=== PATIENT | female | born 1955 | race Caucasian/White ===

== ENCOUNTER 2025-02-28 08:08 | Outpatient (REF) | payer MEDICARE, SELFPAY | END 2025-02-28 08:09 | disposition home or self-care (01) | LOC: HO.HKASLDS 08:08 | PROVIDERS: PCP Student in an Organized Health Care Education/Training Program; Visit Provider Student in an Organized Health Care Education/Training Program | DX: I10 Essential (primary) hypertension (principal); G62.9 Polyneuropathy, unspecified; R03.0 Elevated blood-pressure reading, without diagnosis of hypertension; E78.5 Hyperlipidemia, unspecified; R26.0 Ataxic gait; Z99.89 Dependence on other enabling machines and devices | CPT/HCPCS: 99202 ==

== ENCOUNTER 2025-02-28 08:08 | Outpatient (AMB) | payer MEDICARE, SELFPAY ==
--- OUTSIDE RECORDS SUMMARY | 2025-02-28 08:11 | XMS_ITS | Encounter Summary ---
Author Organization [facility] Address [address] [place] [phone] Phone Care Team Providers Care Area Plant Manager Name Role Phone Aldo Lopez MD Primary Care Provider [phone] Encounter Details Date Type Department Care Team (Late st Contact Info) Description 01/04/2019 Procedure Pass [facility] [address] [place] [address] Social History Tobacco Use Types Packs/Day Years Used Date Smoking Tobacco: Never Assessed Comments Unknown Sex and Gender Information Value Date Recorded Sex Assigned at Female 03/02/2020 10:47 AM EST Legal Sex Female 2:43 PM EDT Gender Identity Female 03/02/2020 10:47 AM EST Sexual Orientation Straight 03/02/2020 10 :47 AM EST documented as of this encounter Plan of Treatment Not on file documented as of this encounter Visit Diagnoses Not on filedocumented in this encounter Care Teams Area Plant Manager Relationship Specialty Start Date End Date Aldo Lopez MD [address] [place] [address] PCP - General Internal Medicine 11/13/18 documented as of this encounter Additional Source Comments The information contained in this document represents components of the legal health record. It is not the complete legal health record.[facility]
--- OUTSIDE RECORDS SUMMARY | 2025-02-28 08:11 | XMS_ITS | Clinical Summary ---
Author Organization [facility] Address [address] [place] [id number] Phone Care Team Providers Care Wound/Ostomy Clinical Nurse Specialist Name Role Phone Aldo Lopez MD Primary Care Provider [phone]- [phone] Allergies No known active allergies Medications melatonin 3 mg Tab as needed. 0 11/28/2018 Active senna-docusate (PERICOLACE) 8.6-50 mg as needed. 0 11/28/2018 Active multivitamin (MULTI-DAY) per tablet Take 1 tablet by mouth daily. Active cyanocobalamin, vitamin B-12, 100 MCG tablet Take 100 mcg by mouth daily as needed. Active docusate sodium (COLACE) 50 MG capsule Take 1 capsule (50 mg total) by mouth 2 (two) times a day. 60 capsule 5 12/21/2018 Active calcium carbonate (CALCIUM 600 ORAL) Take by mouth daily. Active aspirin-acetami nophen-caffeine (EXCEDRIN MIGRAINE) 250-250-65 mg per tablet Take 2 tablets by mouth every 8 (eight) hours as needed for pain (specific location in comments). Active cholecalciferol (VITAMIN D3) 25 MCG (1,000 unit) tablet Take 5,000 Units by mouth daily. Active magnesium oxide 250 mg (150 mg elemental) Tab Take 250 mg by mouth daily. Active Family History Medical History Relation Comments Heart attack Brother Coronary artery disease Father Heart attack Father Stroke Father Uterine cancer Mother Relation Status Comments Brother Father Mother Social History Tobacco Use Types Packs/Day Years Used Date Smoking Tobacco: Former Smokeless Tobacco: Never Education Answer Date Recorded Are you interested in more education? Not on ira e 07/01/2022 Are you concerned about learning? Not on file 07/01/2022 No 07/01/2022 No 07/01/2022 Digital Access Answer Date Recorded No 08/02/2022 No 08/02/2022 Reliable internet access at home? Not on file 08/02/2022 Device with a working camera? Not on file Comments Unknown Sex and Gender Information Value Date Recorded Sex Assigned at Female 03/02/2020 10:47 AM EST Legal Sex Female 2:43 PM EDT Gender Identity Female 03/02/2020 10:47 AM EST Sexual Orientation Straight 03/02/2020 10 :47 AM EST Last Filed Vital Signs Vital Sign Reading Time Taken Comments Blood Pressure 135/88 03/10/2020 12:56 PM EST Pulse 77 03/10/2020 12:56 PM EST Temperature 36.7 C (98.1 F) 03/10/2020 12:56 PM EST Respiratory Rate - - Oxygen Saturation 96% 03/10/2020 12:56 PM EST Inhaled Oxygen Concentration - - Weight 67.1 kg (148 lb) 11/19/2019 3:31 PM EDT P t reported Height 154.9 cm (5' 1 ) 11/19/2019 3:31 PM EDT P t reported Body Mass Index 27.96 11/19/2019 3:31 PM EDT Plan of Treatment Health Maintenance Due Date Last Done Comments Adult Td,Tdap Booster 1953 LIPID PANEL 1953 DEPRESSION SCREENING 1965 SMOKING Hx and SMOKELESS TOB ACCO SCREENING 1966 HEPATITIS C SCREENING 07/05/1971 MAMMOGRAM 1993 COLOGUARD 1998 COLONOSCOPY 1998 COLORECTAL CANCER SCREENING 1998 FIT TEST 1998 FOBT 1998 SIGMOIDOSCOPY 1998 VIRTUAL COLONOSCOPY 1998 PNEUMOCOCCAL VACCINES (50+ y ears) (1 of 1 - PCV) 07/05/2003 ZOSTER VACCINES (2 of 3) 01/24/2016 11/29/2015 OSTEOPOROSIS SCREENING INITI AL (ONE-TIME) 2018 INFLUENZA VACCINE (#1) 2024 COVID-19 VACCINE ( - 2024-2 6 season) 2024 RSV VACCINE (1 - 1-dose 75+ series) 2028 HEPATITIS A VACCINES Aged Out No long er eligible based on patient's age to complete this topic HIB VACCINES Aged Out No longer eligi ble based on patient's age to complete this topic MENINGOCOCCAL VACCINES (ACWY) Aged Out No longer eligible based on patient's age to complete this topic MENINGOCOCCAL VACCINES (B) Aged Out N o longer eligible based on patient's age to complete this topic Medical Devices Not on file Insurance MEDICARE REPLACEMENT MEDICARE REPLACEMENT [place] [id number] MEDICARE REPLACEMENT MEDICARE REPLACEMENT MEDICARE REPLACEMENT MEDICARE RE[place]AC[place] [address] [place] [address] MEDICARE REPLACEMENT [address]ICARE [place] [place] [address] MEDICARE REPLACEMENT Care Teams Wound/Ostomy Clinical Nurse Specialist Relationship Specialty Start Date End Date Aldo Lopez MD [address] [place] [id number] PCP - General Internal Medicine 11/13/18 Additional Source Comments The information contained in this document represents components of the legal health record. It is not the complete legal health record.[facility]
--- OUTSIDE RECORDS SUMMARY | 2025-02-28 08:11 | XMS_ITS | Data Portability ---
Author Organization [place] [facility], PAletaCAleta, [facility] CBO ADMIN Address [address] [place] [address] Care Team Providers Care Poultry Barn Manager Name Role Phone DAMIR ST Pot Annealer LALA ALFONSO Printed Circuit Boards Stripper Etcher BLANKA HASKINS Primary Care Provider Assessment No assessment recorded. Plan of Treatment Reminders Order Date Submit Date Provider Last Modified By Organization Details Last Modified Time Details Appointments PHYSICAL 40 2025 09:00A Jacqueline Haskins APRN Not available Not available Not available Lab lipid panel, serum 2024 025 GAR[facility] (Centralized Electronic Ordering - All Locations), Patient Can Go To The Location Of Their Choice, 05/08/2024 09:55:30 CMP, serum or plasma 2024 025 GARETH [facility] (Centralized Electronic Ordering - All Locations), Patient Can Go To The Location Of Their Choice, 05/08/2024 09:55:30 unlisted lab - TSH reflex to t4f 2024 025 GARETH [facility] (Centralized Electronic Ordering - All Locations), Patient Can Go To The Location Of Their Choice, 05/08/2024 09:55:31 vitamin D, 25-hydrox y, total, serum 2024 025 GARETH [facility] (Centralized Electronic Ordering - All Locations), Patient Can Go To The Location Of Their Choice, 05/08/2024 09:55:31 vitamin B12, serum 2024 025 AGRETH [facility] (Centralized Electronic Ordering - All Locations), Patient Can Go To The Location Of Their Choice, [id number] 05/08/2024 09:55:31 CBC w/ auto diff 2024 025 GARETH [facility] (Centralized Electronic Ordering - All Locations), Patient Can Go To The Location Of Their Choice, [id number] 05/08/2024 09:55:31 Referral None recorded. Procedures None recorded. Surgeries None recorded. Imaging electroca rdiogram 2024 025 [email or web address] [facility] [place], [address], [place], [address], 11/20/2024 11:20:28 MAMMO, screening , digital, bilateral - Screening mammogram due after 07/07/242024 025 [facility] ([facility]), [address], [address], [place], [address], 07/26/2024 12:00:48 Medication Orders atorvasta tin 10 mg tablet 2024 025 [id number], [address], [place], [id number], 05/08/2024 10:04:10 amlodipin e 5 mg tablet 2024 025 [facility] #[id number], [address], [place], [id number], 05/08/2024 10:04:11 Patient TargetsNo targets recorded. Patient Instructions Encounter Date Encounter Id Patient Instructions Last Modified By Organization Details Last Modified Time 05/08/2024 [id number] Well Visit, Ages 18 to 65: Care Instructions [email or web address] Not available 05/08/2024 09:54:06 Repeat mammogram in July Complete fasting labs at [facility] prior to next visit. You have lots of ear wax in your left ears. Use debrox (over the counter) fill the ear canal with the drops once a day for four days. Then use the bulb syringe in the kit to irrigate your ear. If you are having issues or prefer, come in and let us do irrigate your ear after using the debrox. [email or web address] Not available 05/08/2024 10:00:41 11/20/2024 [id number] Well Visit, Ages 18 to 65: Care Instructions [email or web address] Not available 11/20/2024 11:15:25 Reason for Referral None Reported. Results Created Date Observation Date Name Description Value Unit Range Abnormal Flag Note LastModifiedBy Organization Detail LastModifiedTime 07/27/19 MAMMO , scree roverto, digit al, bilat eral No observ ation record ed. [facility] ([facility]) [address] [facility] [address], [place], [address], 07/31/2024 14:27:51 07/27/19 25 07/26/2024 MAMMO , scree roverto, digit al, bilat eral No observ ation record ed. [email or web address] [facility] [address] [facility] [address], [place], [address], 07/31/2024 14:27:52 11/20/19 25 elect rocar diogr am No observ ation record ed. [email or web address] [facility] [place] [address], [place], [address], 11/20/2024 11:15:20 11/26/19 25 elect rocar diogr am No observ ation record ed. [email or web address] [facility] [place] [address], [place], [address], 11/25/2024 09:06:23 Result Notes None recorded. Problems Name Problem SNOMED Code Status Onset Date Resolution Date Notes Provider Name and Address Organization Details Recorded Time Osteopeni a 116683743 Active 2015 Osteopenia Not Available [facility] 23:52:55 Osteoporo sis 03017108 Active 2018 Osteoporos is Blanka Haskins, COMPRESSOR HOUSE OPERATOR [address] [place], [address] , [place] [facility] 5 20:37:48 Muscle weakness 45406882 Active 2018 Generalize d muscle weakness Not Available [facility] 4 23:52:56 Anxiety disorder 587230934 Active 2018 Anxiety disorder, unspecifie d Not Available [facility] 4 23:52:56 Hypertens radha disorder 91957230 Active 2022 HTN (hypertens ion) Not Available [facility] 4 23:52:56 Adenomato us polyp of colon 251589863 Active 2022 Adenomatou s polyp of colon Not Available [facility] 4 23:52:56 Mixed hyperlipi demia 665318872 Active 2023 Mixed hyperlipid emia Blanka Haskins APRN [address] [place], [address] , [place] [facility] 5 20:37:54 Essential hypertens ion 91399276 Active 2024 Blanka Haskins APRN [address] [place], [address] , [place] [facility] 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 5 20:38:10 Excessive cerumen in ear canal 953134413 Active 2024 Blanka Haskins APRN [address] [place], [address] , [place] [facility] 5 10:00:54 Problem Notes None recorded. Procedures Surgical History Date Name Laterality Status Provider Name and Address Organization Details Recorded Time Most Recent Mammogram completed Blanka Haskins APRN [address] [place], [address], [place] [facility] 07/26/2024 12:07:45 5 Date of Last Mammogram completed Blanka MorganJUAN berrios [address] [place], [address], [place] [facility] 07/26/2024 16:20:14 4 Most Recent Bone Density completed Blanka MorganMERISSA berriosN [address] [place], [address], [place] [facility] 05/07/2024 20:39:29 1 Colonoscopy completed Blanka MorganMERISSA berriosN [address] [place], [address], [place] [facility] 05/07/2024 20:51:51 1 colonoscopy and biopsy of colon completed Blanka MorganMERISSA berriosN [address] [place], [address], [place] [facility] 05/07/2024 21:05:09 9 Date of Last Pap Smear completed Blanka MorganMERISSA berriosN [address] [place], [address], [place] [facility] 05/07/2024 20:46:33 aspiration of lesion of breast completed Blanka HaskinsMERISSA berriosN [address] [place], [address], [place] - [facility] 05/07/2024 21:05:47 Imaging Results None recorded. Procedure Notes None recorded. Medical Equipment None Reported. Allergies No known drug allergies Medications Name Sig Start Date Stop Date Status Note LastModified by Organization Details LastModified Time atorvastatin 10 mg tablet TAKE 1 TABLET(1 0 MG) BY MOUTH DAILY 2024 active Not Available Not Available Not Avai lable ibuprofen 800 mg tablet TAKE 1 TABLET BY MOUTH EVERY 8 HOURS NEEDED FOR PAIN 11/20 completed Not Available Not Available Not Available alendronate 70 mg tablet Take 1 tablet (70 mg total) by mouth every 7 days. Take with water on empty stomach/ Nothing by mouth and do not lie down for next 30 minutes 08/13 completed Not Available Not Available Not Available amlodipine 5 mg tablet TAKE 1 TABLET(5 MG) BY MOUTH DAILY 2024 active Not Available Not Available Not Avai lable amoxicillin 500 mg tablet TAKE 1 TABLET BY MOUTH EVERY 6 HOURS UNTIL GONE 11/19 completed Not Available Not Available Not Available aspirin-acet aminophen-ca ffeine 250 mg-250 mg-65 mg tablet Take 2 tablets by mouth every 8 (eight) hours as needed. 11/20 completed Not Available Not Available Not Available amoxicillin 875 mg-potassium clavulanate 125 mg tablet TAKE 1 TABLET BY MOUTH TWICE DAILY FOR 7 DAYS 05/08 completed Not Available Not Available Not Available fiber active Not Available Not Availa ble Not Available Caltrate 600 plus D active Not Available Not Available Not Available Vitals Date Recorded Pain severity - 0-10 verbal numeric rating [Score] - Reported Provider Name and Address Organization Details Last Updated DateTime 05/08/2024 0 Blanka Haskins APRN [address] [place], [address], [facility] 05/08/2024 16:03:36 Date Recorded Body height Body mass index (BMI) Body weight Body temperature Oxygen saturation Heart rate Systolic And Diastolic Provider Name and Address Organization Details Last Updated DateTime 5 156.2 cm 23.8 kg/m2 33410.8 2 g 98 [degF] 99 % 66 /min 124/72 mm[Hg] KEYONNA PENN [place] [employer] 09:17:31 Date Recorded Respiratory rate Provider Name a nd Address Organization Details Last Updated DateTime 11/20/2024 17 /min Blanka Haskins APRN [address] [place], [address], [facility] 11/30/2024 15:29:20 Date Recorded Body height Body mass index (BMI) Body weight Body temperature Oxygen saturation Heart rate Systolic And Diastolic Provider Name and Address Organization Details Last Updated DateTime 5 156.2 cm 24.9 kg/m2 41670.3 8 g 97 [degF] 99 % 68 /min 128/70 mm[Hg] Sunshine Alvarez [facility] 10:27:23 Social History Question Answer Notes LastModified by Organizat ion Details LastModified Time Tobacco Smoking Status Former Smoker Not Available [facility] 02/06/2024 21:25:13 Do You Have An Advance Directive? No Information not available 05/08/2024 How Many Days Of Moderate To Strenuous Exercise, Like A Brisk Walk, Did You Do In The Last 7 Days? 7 [email or web address] Information not available 05/08/2024 How Many Times Per Week Do You Exercise? 5-7 Times Per Week [email or web address] Information not available 05/08/2024 When Did You Quit Smoking? 16+yearssin jj elisejohnny Age 47 ~2004 [email or web address] Information not available 05/07/2024 What Was The Date Of Your Most Recent Tobacco Screening? 11/20/2024 [email or web address] Information not available 11/20/2024 How Many Children Do You Have? 3 [email or web address] Information not available 05/08/2024 What Is Your Current Pack Years? 30ormorepac kyears 34 (1 PPD X34 Yr) [email or web address] Information not available 05/07/2024 What Is Your Relationship Status? 02/01/23 Lives With , X 22 Years. Feels Safe At Home. [email or web address] Information not available 05/07/2024 Are You Sexually Active? No [email or web address] Information not available 05/08/2024 At What Age Did You Start Smoking Tobacco? 13 [email or web address] Information not available 05/07/2024 How Much Tobacco Do You Smoke? No [email or web address] Information not available 05/07/2024 How Many Years Have You Smoked Tobacco? 34 [email or web address] Information not available 05/07/2024 Sex: Female Functional Status Question Answer Note LastModified by Organizat ion Details LastModified Time Do you use any illicit or recreational drugs? No Past marijuana use [email or web address] Information not available 05/08/2024 Do you feel safe in your relationship? Yes [email or web address] Information not available 05/08/2024 Do you or have you ever used any other forms of tobacco or nicotine? No [email or web address] Information not available 05/07/2024 What is your level of alcohol consumption? None [email or web address] Information not available 05/08/2024 Are you currently employed? 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 [email or web address] Information not available 05/07/2024 What is your status? Not [email or web address] Information not available 05/07/2024 Are you able to walk independently without assistance or assistive devices? YESASSIST [email or web address] Information not available 05/08/2024 What is your exercise level? Occasional [email or web address] Information not available 05/08/2024 Do you or have you ever used any nicotine-free cigarettes, vape, or chewing tobacco? No [email or web address] Information not available 05/07/2024 Mental Status None recorded. Family History Relationship Description Onset Age of this Age Resolved Age Notes LastModified by Organization Details LastModified Time Father Essential hypertension [email or web address] Not available 21:03:45 Father Cerebrovascu lar accident [email or web address] Not available 21:03:54 Father Myocardial infarction [email or web address] Not available 06/2024 21:04:03 Mother Malignant neoplasm of uterus Not available 05/07 21:04:11 Brother Myocardial infarction [email or web address] Not available 06/2024 21:04:19 Paternal Aunt Malignant neoplasm of breast [email or web address] Not available 05/07 21:04:37 Medical History Condition Response Hypertension Y Polyps Y GI Problems Y Osteoporosis Y High Cholesterol Y Gynecological History Statement/Question Response Date of Last Pap Smear 03/06/2018 Date of Last Mammogram 07/26/2024 Most Recent Mammogram 07/26/2024 Most Recent Bone Density 07/06/2023 Colonoscopy 09/14/2020 Obstetrics History GPAL:G 3 P 3 0 0 3 Type Value Full Term 3 Living 3 Total 3 Immunizations Vaccine Type Date Status Note Provider Nam e and Address Organization Details Recorded Time zoster live 6 completed Not Available [facility] 02/09/2024 00:03:10 Pneumococcal conjugate PCV 13 9 completed Not Available [facility] 02/09/2024 00:03:10 Past Encounters Encounter ID Performer Location Encounter Start Date Encounter Closed Date Diagnosis/Indication Diagnosis SNOMED-CT Code Diagnosis ICD10 Code Diagnosis IMO Codes Diagnosis Note [id number] Blanka Haskins, COMPRESSOR HOUSE OPERATOR [facility] FCEN2 [facility] (inactive ) [address] [place] [address] 05/08/2024 09:06:40 05/08/2024 10:05:57 Physical examination 0380942 Z00.00 [id number] Routine labs orderedCou nseled on ABCDEs of skin surveillan ce, self breast exam/breas tawareness , healthy diet emphasizin g fruits/veg etables, lean proteins, whole grains and avoidance of refined carbohydra erica/sugar sweetened beverages; counseled on regular physical activity to meet recommende d 150 minutes aerobic activity per week for cardioCase Commons and maintenanc e of healthy weight. Health Maintenanc eAge related cancer screening: Colon Cancer: Up to date- Colonoscop y 09/14/2020 colonoscop y, + tubular adenoma (7-10 year recall?)Ce rvical Cancer: Graduated from recommende d screening - per patient no history of abnormal screening - follows with women's health every 2 years ([facility] [employer] last exam 06/14/[address] CMN), Last pap smear 03/06/2018 Negative, HPV negativeBr east Cancer: Up to date, last mammogram 07/06/23, Stable mammograph ic findings with no evidence of malignancy , BI-RAD 2- BENIGN FINDINGS; Category B densityLun g Cancer: Not eligible - Former smoker, quit smoking >15 years ago Chronic Condition Screening: Falls: + Fall riskDepres molina: PHQ 2 negativeOs teoporosis : Last DEXA 07/06/2023: 1. Lumbar spine: Normal bone density (T score: -0.3). 2. Left hip: Osteoporos is (T score: -2.5).Chol esterol panel: 10/17/2023 cholestero l 172, HDL 72, triglyceri josue 127, LDL 78Diabetic screenin10/17/2023 FBS 97CAD risk: Calc 10 yr risk for first ASCVD event intermedia te, 11.1%Hepat itis C: 10/17/2023 Non-reacti veHIV: 10/17/2023 Non-reacti ve Previously reviewed and discussed advanced directives with patient at [facility] 08/02/[address] Combined form which she was encouraged to complete and return, today states she has not completed but family aware of wishes. Again counseled on benefits of documented AD, provided new copy of [place] Combined form which she was encouraged to complete and return - pt left form in exam room Osteoporosis 38416806 M8 1.0 72600780 Up to date with DEXA, not on treatment. Patient did not tolerate and d/c alendronat e due to concern of muscle pain which subsequent ly resolved with discontinu ation; at that time discussed trial of alternativ e oral bisphospho aviva or alternativ e osteoporos is treatment (e.g. injection or infusion) which patient declined and was counseled on potential alternativ e treatment with supplement ation with 5 g of specific collagen peptides (FORTIBONE ) which patient decided not to pursue. Today patient again not interested in pharmacolo gic treatment Counseled patient on fall prevention measures and ongoing weight bearing exercise and calcium/vi tmain D supplement ation to promote bone health. Repeat vitamin D level Last DEXA 07/06/2023: 1. Lumbar spine: Normal bone density (T score: -0.3). 2. 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 Not engaged with neurology since 2020 - not interested in following with neurology as pt reports symptoms unchanged, will continue to monitor. Does not take any vaccines s/p diagnosis due to GBS concerns. Body mass index 20-24 - normal 178833716 Z68.22 85551449 05/08/24 128 lb. BMI 23.88/28/2 4 128 lb, BMI 23.91 Screening mammography 24 757546 Z12.31 4559096946 Repeat mammogram due 07/05/24 - ordered for future scheduling Excessive cerumen in ear canal 605147876 H61.22 34252330 Counseled not to use q-tips counseled on use of ceruminoly tic drops; advised may return PRN for in office ear lavage. 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 Patient did not tolerate and d/c alendronat e due to concern of muscle pain which subsequent ly resolved with discontinu ation; at that time discussed trial of alternativ e oral bisphospho aviva or alternativ e osteoporos is treatment (e.g. injection or infusion) which patient declined and was counseled on potential alternativ e treatment with supplement ation with 5 g of specific collagen peptides (FORTIBONE ) which patient decided not to pursue. Today patient again not interested in pharmacolo gic treatment Counseled patient on fall prevention measures and ongoing weight bearing exercise and calcium/vi tmain D supplement ation to promote bone health. Repeat vitamin D level - pt to complete previously ordered BW - order placed to [facility] 05/2024 Last DEXA 07/06/2023: 1. Lumbar spine: Normal bone density (T score: -0.3). 2. 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 Not engaged with neurology since 2020 - not interested in following with neurology as pt reports symptoms unchanged, will continue to monitor. Does not take any vaccines s/p diagnosis due to GBS concerns. 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 Lumbar spine: Normal bone density (T score: -0.3). 2. Left hip: Osteoporos is (T score: -2.5) - consider repeat study hol esterol panel: 10/17/2023 cholestero l 172, HDL 72, triglyceri josue 127, LDL 78 - repeat BW pending pt completion Diabetic screenin10/17/2023 FBS 97CAD risk: Calc 10 yr risk for first ASCVD event intermedia te, 11.1%Hepat itis C: 10/17/2023 Non-reacti veHIV: 10/17/2023 Non-reacti ve Health Concerns Section Related Observation LastModified by Organization Detai ls LastModified Time None Recorded Concern Status LastModified by Organization Details LastModified Time None Recorded Advance Directives Directive N: Payers Insurance Date Sequence Insurance Name Policy Number Policy Oreilly Covered Member ID Oreilly Member ID Guarantor Name 12/04/2024 1 [facility] (MEDICARE REPLACEMENT/ ADVANTAGE - PPO) [id number] Shanna Infante [id number] Shanna Infante Notes Date Note Type Note Provider Name and Address Organization Details Recorded Time 5 text/html Patient presents for annual physical, last seen 11/01/23. She offers no acute concerns todayNo falls or hospitalizations since last.Up to date with eye exam in last 12 monthsUp to date w/ dental care, sees every 6 months HLD: adherent with atorvastatin, tolerating medication well without any myalgias or fatigue HTN: adherent with amlodipineRare headache responsive to OTC medicationDenies chest pain, palpitations, blurry vision, lower extremity edema, orthopnea, coughing, wheezing, SOB, and PND.Osteoporosis:Past trial of alendronate, pt self d/c due to concern of muscle pain. Not interested in further pharmacologic treatment. Last visit discussed alternative trial of collagen peptides (FORTIBONE ), since last has not tried and states she decided she is not going to start. 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 She reports chronic stable symptoms of decreased sensation & generalized paresthesias from her shoulders down. Fingers feel slippery. 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 Able to ambulate independently, uses single point cane for support b/c she wobbles Also has grab bars in her shower and transfer bench in the bathroom.Refuses all vaccines and does not wish to discuss. She does not take vaccines s/p significant adverse reaction to pneumonia vaccine in 2019. She was admitted to the hospital 1 week after vaccine w/ c/o acute onset leg muscle pain and subsequently developed developed more difficulty walking necessitating discharge to rehab facility in wheelchair. History of areflexia. She has worked w/ PT and OT and gradually improved functional status, w/ eventual plateau and has not been able to return to baseline function. She is able to complete ADLS including ambulation and independent bathing which she was not able to do in the past.-previously followed by neurologist Dr Gary Henry 03/10/2020 - at that time her symptoms were stable but her functional status remained below baseline; additional diagnostics and IVIG treatment deferred at that time, w/ recommendation to return to care in 6-12 months. Patient did not feel worthwhile to continue consultation given symptom stability.Prior testin01/08/19 MRI w/o evidence of an acute intracranial abnormality, mass, hydrocephalus or abnormal enhancement, 07/18/2019 PET negative for malignancy, and blood work including testing for autoimmune encephalopathy which was largely nimyynwdune51/1/2019 Abnormal EMG: The non-length dependent, reduced sensory responses in the upper extremities, in the absence of demyelinating changes on motor nerve conductions and fairly normal needle examination, is most supportive of a sensory ganglionopathy.Again, there is no clear electrophysiological evidence of a demyelinating polyneuropathy, as is seen in Guillain-Blackwood syndrome.The mild abnormal spontaneous activity isolated to the rightbiceps on the needle EMG study is of unclear significance, asother C5-6, upper trunk, lateral cord muscles studied were fairlynormal. Blanka Haskins, COMPRESSOR HOUSE OPERATOR [address] [place], [address], [facility] - [employer] 05/08/2024 16:04:02 5 text/html Shanna is a 69year old female who presents today for an Annual Wellness Visit.Patient reports doing well overall since her last visit.Recent healthcare maintenance includes eye exam one month ago for new glasses with no concerns noted, and dental visit approximately four months ago with routine twice-yearly visits maintained. Patient reports recent loss of brother under suspicious circumstances involving head trauma, which has caused increased stress and appetite. 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 Describes ongoing generalized paresthesias from shoulders down as like if your leg would go to sleep and then kind of pins and needles but states she is used to it after six years. Denies current pain. AWV SCREENINGFall Risk AssessmentMedicare Screening Date:Has the patient fallen in the last 6 months?: noDoes patient have difficulty with walking or balance?: yesDoes the patient use any assistive devices with ambulation?: yesFuture fall risk status: positive HEARING:normal Passed tone testing bilaterally VISUAL ACUITY:UTD with eye exam PERSONALIZED PREVENTION PLANDuring the course of the visit the patient was educated and counseled about appropriate screening and preventive services. BMI SCREENING REVIEWED:patient's BMI was normal DEPRESSION SCREENING REVIEWED:Clinical depression screening was performed and patient is negative for depression FUNCTIONAL ASSESSMENT (ADL/I-ADL) SCREENING REVIEWED:ADL ASSESSMENT:MAXWELL ADL Score : 6IADL SCREENING:Ability to Use Telephone : 1ShoppinFood Preparation: 1HousekeepinLaundry: 1Mode of Transportation: 1Responsibility for Own Medications: 1Ability to Handle Finances: 1IADL Total Score:: 8 functional ability has remained stable HOME SAFETY REVIEWED:When you walk through a room, do you have to walk around furniture? noDo you have throw rugs or runners on the floor? yesDo you have to walk over or around cords or wires? noAre there objects (papers, magazines, shoes, boxes) that are in your way when you walk up the stairs? noAre you missing a light over the stairway or is it burnt out? noDo any of your carpets have bumps or curled ends so they do not lie completely flat? noIf you have handrails, are the handrails loose or broken? noIf you use a step stool, is your step stool unsteady? noIs your tub/shower floor slippery? noDo you need support when you get in and out of the tub or up from the toilet (i.e. grab bars) yesIs the light near your bed hard to reach? noDo you have working smoke detectors? yesDo you regularly change the batteries in the smoke detectors? yesIf you have a space heater, are they far away from flammable objects? N/AIs there a phone in your bedroom? yesDo you have an exit plan if there is a fire? yesDo you always fasten your seatbelt when you are in the car? yes Discussed home modifications/improvement s to increase safeety. HEALTH RISK ASSESSMENTMedicare Screening Date:During the past four weeks, has your physical/emotional health limited your social activities? no During the past four weeks, was someone available to help you if you needed help? yes Do you exercise for at least 20 minutes 3 or more days per week?yes Are you confident that you can control/manage most of your health problems?yes 5. Have you had any issues with the following during the past 4 weeks? Please [place] all issues that you have experienced.Sexual Problems Trouble Eating Teeth/Denture Problems Tired/Fatigue - None 6. How would you rate your overall health? Please [place] the most appropriate answer.Good COGNITIVE SCREENING REVIEWED:No evidence of significant cognitive impairment PAIN ASSESSMENT REVIEWED:No reported pain. ADVANCE DIRECTIVES REVIEWED:discussed with patient- Has healthcare proxy (Daughter Ragini) and living will in place Social History:- Former smoker, quit around 2003- No alcohol or substance use- , feels safe at home- Lives independently with assistive devices (cane, shower chair, grab bars) Blanka Haskins APRN [address] [place], [address], [place] - [facility] 11/30/2024 15:41:20 OBGyn Episode No OBEpisode recorded.
--- OUTSIDE RECORDS SUMMARY | 2025-02-28 08:11 | XMS_ITS | Data Portability ---
Author Organization [facility], Main Office Address [address] [facility] [address] [place] [id number] Care Team Providers Care Fish Packer Name Role Phone MARITZA ZELAYA Primary Care Provider MERCEDEZ JIMENES Nitrocellulose Maker Assessment No assessment recorded. Plan of Treatment Reminders Order Date Submit Date Provider Last Modified By Organization Details Last Modified Time Details Appointments None recorde d. Lab None recorde d. Referral None recorde d. Procedures None recorde d. Surgeries None recorde d. Imaging MAMMO, screeni ng, digital , bilater al - screeni ng 2015 016 [email or web address] Not available 7 09:24:36 Medication Orders None recorde d. Patient TargetsNo targets recorded. Patient InstructionsNo instructions recorded. Reason for Referral None Reported. Results Created Date Observation Date Name Description Value Unit Range Abnormal Flag Note LastModifiedBy Organization Detail LastModifiedTime 03/03/20 16 02/15/2016 bone densi ty No observ ation record ed. [email or web address] Not Available 2015 12:07:40 02/09/20 18 02/08/2018 MAMMO , scree roverto, digit al, bilat eral PROCED URE: MM Digita l Mammo Screen ing INDICA TION: Screen ing. No known palpab le abnorm alitie s. Histor y of benign excisi onal biopsy on the right in 2000. COMPAR ALAN: Multip le priors dating back to 05/13/19 11 TECHNI QUE: Full-f ield digita l CC and MLO 3D tomosy nthesi s images of both breast s were acquir ed. Comput er-aid ed detect ion (CAD) was utiliz ed in the interp retati on of this study. DENSIT Y: The breast tissue contai ns scatte red areas of fibrog landul ar densit y. FINDIN GS: No suspic ious masses , suspic ious microc alcifi cation s, or areas of italo ectura l distor tion are seen in either breast to sugges t malign brissa. IMPRES JOAQUIN: No mammog raphic eviden ce of malign brissa. RECOMM ENDATI ON: Routin e mammog raphic screen ing BI-RAD S: 1 (Negat radha) Lay letter mailed to jeremie sin WSN: [id number] Dictat ed By: Shane Burleson MD Dictat ed Date/T walter: 11:30 am Review ed By: Shane Burleson MD Signed By: Shane Burleson MD Signed Date/T walter: 11:30 am Transc ribed By: CSB Transc riptio n Date/T walter: 11:24 am Birads : Jeremie sin Class: Outpat ient [email or web address] [facility] (Outpt Imaging) [address] , [place], [address], 02/08/2018 11:40:14 06/19/19 19 06/07/2018 bone densi ty No observ ation record ed. [email or web address] Not Available 2018 16:39:22 Result Notes Documentation Provider Name and Address Organization Details Recorded Time Mammo, Screening, Digital, Bilateral : PROCEDURE: MM Digital Mammo Screening INDICATION: Screening. No known palpable abnormalities. History of benign excisional biopsy on the right in 2000. COMPARISON: Multiple priors dating back to 05/12/2010 TECHNIQUE: Full-field digital CC and MLO 3D tomosynthesis images of both breasts were acquired. Computer-aided detection (CAD) was utilized in the interpretation of this study. DENSITY: The breast tissue contains scattered areas of fibroglandular density. FINDINGS: No suspicious masses, suspicious microcalcifications, or areas of architectural distortion are seen in either breast to suggest malignancy. IMPRESSION: No mammographic evidence of malignancy. RECOMMENDATION: Routine mammographic screening BI-RADS: 1 (Negative) Lay letter mailed to patient WSN: [id number] Dictated By: Marie Burleson MD Dictated Date/Time: 02/08/18 11:30 am Reviewed By: Marie Burleson MD Signed By: Marie Burleson MD Signed Date/Time: 02/08/18 11:30 am Transcribed By: CRISTAL Weight Reducing Technician Date/Time: 02/08/18 11:24 am Birads: Patient Class: Outpatient Steph ruby [facility] 02/08/2018 11:40:14 Problems Name Problem SNOMED Code Status Onset Date Resolution Date Notes Provider Name and Address Organization Details Recorded Time Overweight 821957844 Active [employer] [address], [place], [address], [facility] 6 15:52:14 Adenomatous polyp of colon 882532841 [employer] [address], [place], [address], [facility] 6 15:52:14 Osteopenia 029647232 Active [address] [employer] [address], [place], [address], [facility] 6 12:07:35 Osteoporosis 68325368 Active [address] [employer] [address], [place], [address], [facility] 9 16:38:46 Problem Notes None recorded. Procedures Surgical History Date Name Laterality Status Provider Name and Address Organization Details Recorded Time 8 Most Recent Mammogram completed Steph Teague [facility] 02/08/2018 11:40:51 8 Mammogram screening completed Steph Teague [facility] 02/08/2018 11:41:14 8 Date of Last Pap Smear completed Steph Teague [facility] 01/31/2018 08:54:35 Imaging Results None recorded. Procedure Notes None recorded. Medical Equipment None Reported. Medications Not known to be on any medication Vitals Date Recorded Body weight Body height Body mass index (BMI) Body temperature Oxygen saturation Heart rate Systolic And Diastolic Provider Name and Address Organization Details Last Updated DateTime 6 [address].9 4 g 153.67 cm 25.7 kg/m2 97.6 [degF] 98 % 58 /min 132/81 mm[Hg] Nacho Joseph [facility] 6 09:58:04 Social History Question Answer Notes LastModified by Organizat ion Details LastModified Time Tobacco Smoking Status Former Smoker Nacho ruby [facility] 10/12/2015 09:59:56 Do You Have An Advance Directive? Yes Given 10/12/2015 Information not available 10/12/2015 Is Blood Transfusion Acceptable In An Emergency? Yes Information not available 10/12/2015 What Is Your Level Of Caffeine Consumption? Occasional Coffee, Soda Information not available 10/12/2015 How Much Tobacco Do You Chew? None Information not available 10/12/2015 What Type Of Diet Are You Following? REGULAR Information not available 10/12/2015 Live Alone Or With Others? With Others Information not available 10/12/2015 Do You Take Precautions To Prevent Distracted Driving? Yes Information not available 10/12/2015 How Often Do You Need To Have Someone Help You When You Read Instructions, Pamphlets, Or Other Written Material From Your Doctor Or Pharmacy? Never Information not available 10/12/2015 How Many Children Do You Have? 3 Information not available 10/12/2015 Do You Use Protection During Sex? No Information not available 10/12/2015 Seat Belts Used Routinely Yes Information not available 10/12/2015 Are You Sexually Active? Yes Information not available 10/12/2015 Smoke Alarm In Home Yes Information not available 10/12/2015 At What Age Did You Start Smoking Tobacco? 56 Information not available 10/12/2015 Are You Passively Exposed To Smoke? Yes Information not available 10/12/2015 Do You Use Sunscreen Routinely? Yes Information not available 10/12/2015 Sex: Unknown Functional Status Question Answer Note LastModified by Organizat ion Details LastModified Time What is your level of alcohol consumption? Occasional Information not available 10/12/2015 Are you currently employed? Yes Information not available 10/12/2015 Are you able to care for yourself independently? 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 Moderate Information not available 10/12/2015 Mental Status None recorded. Family History Relationship Description Onset Age of this Age Resolved Age Notes LastModified by Organization Details LastModified Time Mother History of malignant neoplasm of ovary [email or web address] Not available 10/2015 10:11:46 Father Essential hypertension [email or web address] Not available 10/12/2015 10:11:58 Maternal Aunt Malignant neoplasm of breast [email or web address] Not available 10/2015 10:12:11 Medical History No medical history recorded. Gynecological History Statement/Question Response Frequency of Cycle (Q days) 0 Menses Monthly N Duration of Flow (days) 0 Date of Last Pap Smear 01/23/2018 Age at Menarche 12 Current Control Method None Most Recent Mammogram 02/08/2018 Age at First Child 19 LMP Unknown Desired Control Method N/A Obstetrics History GPAL:G 3 P 0 0 0 0 Immunizations Vaccine Type Date Status Note Provider Nam e and Address Organization Details Recorded Time zoster live 11/29/2015 completed Steph ruby MA [facility] 12/01/2015 10:35:01 Past Encounters Encounter ID Performer Location Encounter Start Date Encounter Closed Date Diagnosis/Indication Diagnosis SNOMED-CT Code Diagnosis ICD10 Code Diagnosis IMO Codes Diagnosis Note [id number] Maritza Zelaya PA-C Main Office [address] [facility] [place] [address] 10/12/2015 09:29:29 10/12/2015 11:11:12 Adult health examination 152197906 Z00.00 Healthy 60 year old female. Needs to gave PUBLICATIONS EDITOR exam which is scheduled next month. Find out if needs to have Td and when her last colonoscop y was. Schedule mammograph y for screening. Continue healthy diet and exercise. recommende d monthly selfbreast examinatio ns. Overweight 699366789 E66 .3 Screening mammography 24 075946 Z12.31 Health Concerns Section Related Observation LastModified by Organization Detai ls LastModified Time None Recorded Concern Status LastModified by Organization Details LastModified Time None Recorded Advance Directives Directive Y: given 10/12/2015 Payers Insurance Date Sequence Insurance Name Policy Number Policy [place] Covered Member ID [place] Member ID Guarantor Name 06/19/2018 1 [facility] [id number] Shanna Infante [id number] Shanna Infante Notes Date Note Type Note Provider Name and Address Organization Details Recorded Time 10/12/2015 text/html Generic HPI TemplateReported by [email or web address] year old female for new patient PE. Healthy overall. Did not have PE in almost 3 years . Had recent fasting labs at work and showed normal lipids and glucose. Normal waist circumference and BP. Last PUBLICATIONS EDITOR exam was also 3 years ago. Has odalis to have PapSmears done next month. No abnormal PUBLICATIONS EDITOR history.No vaccine records here , but pt. is fairly sure she had it done for [facility] w/i the past few years.Needs Zostavax vaccine. Needs mammography. Pt. does not do selfbreast exams. Has paternal aunt with h/o breast CA.UP to date with colonoscopy , but no records in chart.Non smoker. Quit 5 years ago. Denies pulmonary symptoms. ETOH occasionally.Had DEXA scan done deviously . NO h/o osteopenia/osteporosis . Tyree Gutierrez MD [address] [facility] [address], [place], [address], [facility] 10/13/2015 08:56:14 OBGyn Episode No OBEpisode recorded.
--- OUTSIDE RECORDS SUMMARY | 2025-02-28 08:11 | XMS_ITS | Data Portability ---
Author Organization [place] - [facility] Address [address] [place] [id number] Care Team Providers Care Firearms Model Maker Name Role Phone BEKAHTIO PATEL Primary Care Provider Assessment Encounter Date Assessment Date Assessment LastModified by Organization Details LastModified Time 02/24/2022 02/24/2022 Brief Overview: 66 year old female new to with a history of post vaccine GBS being seen today for general malaise, no energy, mild sore throat with deep, painful cough for last 1.5 days. Has not taken temp with temp 102.8 on arrival with no tylenol or advil taken/none in home. Only taking Delsym for cough. Slight headache; no shortness of breath; cough productive of small amount of white secretions. Denies any GI symptoms. Little appetite but drinking well I have reviewed the Other: PVIX from (hospital system/practi ce) , on this date of service . Specifically, the data/test result/record I reviewed was: labs/PCP notes . Vital Signs: 120/80; 100; repeat 98 apical with fever; 20; 98%; 102.8 Acetaminophen 1 gm given on scene Exam: non-toxic but acutely ill appearing female, febrile, in no distress; TMs clear; no nasal discharge/sin us tenderness; no pharyngeal erythema or cervical LAD; lungs clear all ward; S1S2 reg no murmur; abd negative; no edema DDx considered, with rationale: -Influenza: considered due to abrupt onset, fever; no rapids available; send PCR -COVID : considered with fever, rapid neg;will send PCR -Viral illness: send PCR to check for RSV/other viral illnesses -Pneumonia; considered with cough and fever but lungs clear [facility] Not available 02/24/2022 11:21:16 Plan of Treatment Reminders Order Date Submit Date Provider Last Modified By Organization Details Last Modified Time Details Appointments None recorded. Lab rapid SARS CoV 2 Ag, QL IA, respirato ry specimen 2021 [facility], [address] [place], [address], 11:04:13 unlisted lab - covid-19 (novel coronavir us) PCR 2021 [place] [facility] (Centralized Electronic Ordering - All Locations), Patient Can Go To The Location Of Their Choice, [id number] 13:42:03 respirato ry virus panel 2021 [place] [facility] (Centralized Electronic Ordering - All Locations), Patient Can Go To The Location Of Their Choice, [id number] 07:06:58 Referral None recorded. Procedures None recorded. Surgeries None recorded. Imaging None recorded. Medication Orders Tamiflu 75 mg capsule 2021 [facility]/Pharmacy #[id number], [address] [place], [address], 11:04:31 acetamino phen 325 mg tablet 2021 [facility] [place]/Pharmacy #[id number], [address] [place], [address], 11:04:05 Patient TargetsNo targets recorded. Patient Instructions Encounter Date Encounter Id Patient Instructions Last Modified By Organization Details Last Modified Time 02/24/2022 [id number] -You were seen today for what appears influenza illness; we sent out a viral panel to check for flu, RSV and other viral illnesses since your rapid COVID was negative -Tylenol 1000mg 3 times a day for the next 3 days -May also take ibuprofen 400-600 mg 3 times a day in between tylenol -Mucinex DM maximum strength tabs, 1 tab twice a day for the next 3-5 days -Tamiflu 1 tab twice a day for 5 days -Increase fluids -Call PCP for follow up 5-7 days, seek medical attention if any worsening symptoms, shortness of breath vicki Not available 02/24/2022 11:09:20 Reason for Referral None Reported. Results Created Date Observation Date Name Description Value Unit Range Abnormal Flag Note LastModifiedBy Organization Detail LastModifiedTime 02/25/2002/25/2022 COVID -19 (NOVE L CORON AVIRU S) PCR covid-19 PCR result (neg) NEGAT LUIZ 2019- novel Coron aviru s (2018nCoV ) not detec tyler by real- time RT-PC R. Note: If clini sachin suspi cion for COVID -19 is high, frederic nue to maint ain preca ution s and consi marbella repea t testi ng. Resul t repor tyler to the [facility]. To preve nt error s in diagn osis, test resul ts shoul d be inter prete d in the boris xt of clini sachin findi ngs and other labor atory data. Rare polym orphi sms exist that could lead to false -nega tive or false -posi tive resul ts. If resul ts obtai max do not match the clini sachin findi ngs, addit ional testi ng shoul d be consi dered . This test has been autho rized by the FDA under an Emerg ency Use Autho rizat ion (EUA) for use by autho rized labor atori es. Testi ng perfo rmed by real time PCR [facility] SARS- CoV-2 test. Not Available [facility] (Centralized Electronic Ordering - All Locations) Patient Can Go To The Location Of Their Choice, [id number] 02/25/2022 13:42:03 02/25/20 22 02/25/2022 COVID -19 (NOVE L CORON AVIRU S) PCR covid-19 PCR specimen source NASAL Not Available [facility] (Centralized Electronic Ordering - All Locations) Patient Can Go To The Location Of Their Choice, [id number] 02/25/2022 13:42:03 02/25/20 22 02/27/2022 RESPI RATOR Y PROFI LE, PCR adenovirus Not Detec tyler Refer ence range : Not Detec tyler Not Available [facility] (Centralized Electronic Ordering - All Locations) Patient Can Go To The Location Of Their Choice, [id number] 02/27/2022 07:06:58 02/25/2002/27/2022 RESPI RATOR Y PROFI LE, PCR coronavirus hku1 (not covid-19 Not Detec tyler Refer ence range : Not Detec tyler Not Available [facility] (Centralized Electronic Ordering - All Locations) Patient Can Go To The Location Of Their Choice, [id number] 02/27/2022 07:06:58 02/25/2002/27/2022 RESPI RATOR Y PROFI LE, PCR coronavirus nl63 (not covid-19 Not Detec tyler Refer ence range : Not Detec tyler Not Available [facility] (Centralized Electronic Ordering - All Locations) Patient Can Go To The Location Of Their Choice, [id number] 02/27/2022 07:06:58 02/25/2002/27/2022 RESPI RATOR Y PROFI LE, PCR coronavirus 229E (not covid-19 Not Detec tyler Refer ence range : Not Detec tyler Not Available [facility] (Centralized Electronic Ordering - All Locations) Patient Can Go To The Location Of Their Choice, [id number] 02/27/2022 07:06:58 02/25/2002/27/2022 RESPI RATOR Y PROFI LE, PCR coronavirus oc43 (not covid-19 Not Detec tyler Refer ence range : Not Detec tyler Not Available [facility] (Centralized Electronic Ordering - All Locations) Patient Can Go To The Location Of Their Choice, 02/27/2022 07:06:58 02/25/2002/27/2022 RESPI RATOR Y PROFI LE, PCR human metapneumovi lyndon Not Detec tyler Refer ence range : Not Detec tyler Not Available [facility] (Centralized Electronic Ordering - All Locations) Patient Can Go To The Location Of Their Choice, [id number] 02/27/2022 07:06:58 02/25/2002/27/2022 RESPI RATOR Y PROFI LE, PCR human rhinovirus/e nterovirus Not Detec tyler Refer ence range : Not Detec tyler Not Available [facility] (Centralized Electronic Ordering - All Locations) Patient Can Go To The Location Of Their Choice, [id number] 02/27/2022 07:06:58 02/25/2002/27/2022 RESPI RATOR Y PROFI LE, PCR influenza A DETECT ED abnormal Refer ence range : Not Detec tyler Not Available [facility] (Centralized Electronic Ordering - All Locations) Patient Can Go To The Location Of Their Choice, [id number] 02/27/2022 07:06:58 02/25/2002/27/2022 RESPI RATOR Y PROFI LE, PCR influenza A/H1 TEST NOT PERFOR MED (NOTE ) Test not perfo rmed Not Available [facility] (Centralized Electronic Ordering - All Locations) Patient Can Go To The Location Of Their Choice, [id number] 02/27/2022 07:06:58 02/25/2002/27/2022 RESPI RATOR Y PROFI LE, PCR influenza A/H1-2009 TEST NOT PERFOR MED (NOTE ) Test not perfo rmed Not Available [facility] (Centralized Electronic Ordering - All Locations) Patient Can Go To The Location Of Their Choice, [id number] 02/27/2022 07:06:58 02/25/2002/27/2022 RESPI RATOR Y PROFI LE, PCR influenza A/H3 DETECT ED abnormal Refer ence range : Not Detec tyler Not Available [facility] (Centralized Electronic Ordering - All Locations) Patient Can Go To The Location Of Their Choice, [facility] 02/27/2022 07:06:58 02/25/2002/27/2022 RESPI RATOR Y PROFI LE, PCR influenza B Not Detec tyler Refer ence range : Not Detec tyler Not Available [facility] (Centralized Electronic Ordering - All Locations) Patient Can Go To The Location Of Their Choice, [id number] 02/27/2022 07:06:58 02/25/2002/27/2022 RESPI RATOR Y PROFI LE, PCR parainfluenz a 1 Not Detec tyler Refer ence range : Not Detec tyler Not Available [facility] (Centralized Electronic Ordering - All Locations) Patient Can Go To The Location Of Their Choice, [id number] 02/27/2022 07:06:58 02/25/2002/27/2022 RESPI RATOR Y PROFI LE, PCR parainfluenz a 2 Not Detec tyler Refer ence range : Not Detec tyler Not Available [facility] (Centralized Electronic Ordering - All Locations) Patient Can Go To The Location Of Their Choice, [id number] 02/27/2022 07:06:58 02/25/2002/27/2022 RESPI RATOR Y PROFI LE, PCR parainfluenz a 3 Not Detec tyler Refer ence range : Not Detec tyler Not Available [facility] (Centralized Electronic Ordering - All Locations) Patient Can Go To The Location Of Their Choice, [id number] 02/27/2022 07:06:58 02/25/2002/27/2022 RESPI RATOR Y PROFI LE, PCR parainfluenz a 4 Not Detec tyler Refer ence range : Not Detec tyler Not Available [facility] (Centralized Electronic Ordering - All Locations) Patient Can Go To The Location Of Their Choice, [id number] 02/27/2022 07:06:58 02/25/2002/27/2022 RESPI RATOR Y PROFI LE, PCR respiratory syncytial virus Not Detec tyler Refer ence range : Not Detec tyler Not Available [facility] (Centralized Electronic Ordering - All Locations) Patient Can Go To The Location Of Their Choice, [id number] 02/27/2022 07:06:58 02/25/2002/27/2022 RESPI RATOR Y PROFI LE, PCR bordetella pertussis Not Detec tyler Refer ence range : Not Detec tyler Not Available [facility] (Centralized Electronic Ordering - All Locations) Patient Can Go To The Location Of Their Choice, [id number] 02/27/2022 07:06:58 02/25/2002/27/2022 RESPI RATOR Y PROFI LE, PCR chlamydophil a pneumoniae Not Detec tyler Refer ence range : Not Detec tyler Not Available [facility] (Centralized Electronic Ordering - All Locations) Patient Can Go To The Location Of Their Choice, [id number] 02/27/2022 07:06:58 02/25/2002/27/2022 RESPI RATOR Y PROFI LE, PCR mycoplasma pneumoniae Not Detec ytler Refer ence range : Not Detec tyler (NOTE ) This panel does not detec t the novel 2019 Coron aviru s (2019 -nCoV ). Any posit luiz or negat luiz coron aviru s resul t myranda d not be used to diagn ose patie nts for the 2018- V. Aarti e refer to the CDC websi te for testi ng recom menda tions . Test perfo rmed by [facility], [address], [place] [address] Not Available [facility] (Centralized Electronic Ordering - All Locations) Patient Can Go To The Location Of Their Choice, [id number] 02/27/2022 07:06:58 02/25/2002/24/2022 rapid SARS CoV 2 Ag, QL IA, respi rator y speci men Covid-19 (ref: neg) negati ve Not Available [facility] [address] [place], [address], 02/24/2022 10:56:39 02/25/20 22 02/24/2022 rapid SARS CoV 2 Ag, QL IA, respi rator y speci men Control Visual ized/V alid Not Available [facility] [address] [place], [address], 02/24/2022 10:56:39 02/25/20 22 02/24/2022 rapid SARS CoV 2 Ag, QL IA, respi rator y speci men Location [facility], [address] [place] [address], [id number] [phone] Not Available [facility] [address] [place], [address], 02/24/2022 10:56:39 Result Notes None recorded. Medical Equipment None Reported. Allergies No known drug allergies Medications Name Sig Start Date Stop Date Status Note LastModified by Organization Details LastModified Time acetaminoph en 325 mg tablet 1000mg PO administe red on scene. Time administe red:1050 2021 active Not Available Not Available Not Avai lable oseltamivir 75 mg capsule TAKE 1 CAPSULE BY MOUTH TWICE A DAY FOR 5 DAYS active Not Available Not Available No t Available neomycin 3.5 mg/g-polymy sera B 10,000 unit/g-dexa meth 0.1 % eye oint APPLY APPLY TO LIDS EVERY DAY AT BEDTIME 02/24 completed Not Available Not Available Not Available BinaxNOW COVID-19 Ag Self Test kit TEST DIRECTED TODAY 02/24 completed Not Available Not Available Not Available Vitals Date Recorded Body temperature Oxygen saturation Respiratory rate Heart rate Systolic And Diastolic Provider Name and Address Organization Details Last Updated DateTime 102.8 [degF] 98 % 20 /min 100 /min 120/80 mm[Hg] Not Available [facility] 10:50:16 Social History Question Answer Notes LastModified by Organizat ion Details LastModified Time Tobacco Smoking Status Never Smoker Kathleen Valentine NP [address], [place], [address], [place] - [facility] 02/24/2022 10:52:55 Do You Have An Advance Directive? No Information not available 02/24/2022 What Is Your Code Status? Full Code Zeolifeelliwell Information not available 02/24/2022 Within The Past 12 Months, Has It Happened That The Food You Bought Just Didn't Last And You Didn't Have Money To Get More. Never True Information not available 02/24/2022 Within The Past 12 Months, Have You Worried That Your Food Would Run Out Before You Got Money To Buy More. Never True Information not available 02/24/2022 Fall Risk: Do You Feel Unsteady When Standing Or Walking? No Information not available 02/24/2022 Excessive Alcohol Or Drug Use No Information not available 02/24/2022 Does This Patient Have A PCP? No Looking For New PCP [id number] Information not available 02/24/2022 Has The Patient Seen Their PCP In The Past 6 Months? Yes Information not available 02/24/2022 Is This Patient In Hospice? No Information not available 02/24/2022 We Know From Many Of Our Patients That Covering All Of Their Costs Can Be Difficult At Times. This Can Cause Stress And Impact Health. In The Past Year, Have You Been Unable To Get Any Of The Following When It Was Really Needed? No Information not available 02/24/2022 What Is Your Housing Situation Today? I Have Housing Information not available 02/24/2022 Sex: Unknown Functional Status Question Answer Note LastModified by Organizat ion Details LastModified Time Do you use any illicit or recreational drugs? No [facility] Information not available 02/24/2022 What is your level of alcohol consumption? None [facility] Information not available 02/24/2022 Mental Status None recorded. Family History Relationship Description Onset Age of this Age Resolved Age Notes LastModified by Organization Details LastModified Time Father Coronary arterioscler osis [facility] Not available 02/24 10:21:28 Mother Malignant neoplastic disease [facility] Not available 02/24 10:21:35 Medical History Condition Response Diabetes N Coronary Artery Disease N CHF N Parkinson's Disease N Cancer N Stroke N Dementia N Asthma N COPD N Depression N Hypothyroidism N High Cholesterol N Rheumatoid Arthritis N Pulmonary Embolism N Hypertension N A-fib N Osteoporosis N Kidney Disease N Gynecological HistoryNo gynecological history recorded. Obstetrics History GPAL:G 0 P 0 0 0 0 Past Encounters Encounter ID Performer Location Encounter Start Date Encounter Closed Date Diagnosis/Indication Diagnosis SNOMED-CT Code Diagnosis ICD10 Code Diagnosis IMO Codes Diagnosis Note [id number] Kathleen Valentine NP [facility] [address] [place] [address] 02/24/2022 10:43:32 03/01/2022 11:23:11 Viral syndrome 436745621 B34.9 -Symptom control/pr oactive with Tylenol 1gm TID; may use ibuprofen in between tylenol dosing-Muc inex DM max BID x 3-5 days-Tamif suze-Fluids- Rest-PCP follow up 5-7 days/ED precaution s Health Concerns Section Related Observation LastModified by Organization Detai ls LastModified Time None Recorded Concern Status LastModified by Organization Details LastModified Time None Recorded Advance Directives Directive N: Payers Insurance Date Sequence Insurance Name Policy Number Policy Oreilly Covered Member ID Oreilly Member ID Guarantor Name 02/24/2022 1 [facility] (MEDICARE REPLACEMENT/A DVANTAGE - PPO) [id number] Shanna Infante [id number] Shanna Infante 02/24/2022 1 *SELF PAY* Shanna Infante [id number] Shanna Infante 02/24/2022 1 [facility] (MEDICARE REPLACEMENT/A DVANTAGE - PPO) [id number] Shanna Infante [id number] Shanna Infante 03/22/2022 2 [employer] (MEDICARE SUPPLEMENT) Shanna Infante [id number] Shanna Infante 03/22/2022 1 [facility] (MEDICARE REPLACEMENT/A DVANTAGE - PPO) [id number] Shanna Infante [id number] Shanna Infante Notes Date Note Type Note Provider Name and Address Organization Details Recorded Time 02/24/2022 text/html 66 year old female new to with a history of post vaccine GBS being seen today for general malaise, no energy, mild sore throat with deep, painful cough for last 1.5 days. Has not taken temp with temp 102.8 on arrival with no tylenol or advil taken/none in home. Only taking Delsym for cough. Slight headache; no shortness of breath; cough productive of small amount of white secretions. Denies any GI symptoms. Little appetite but drinking well Kathleen Valentine NP [address] [facility] [place], [address], [place] [facility] 02/24/2022 11:22:51 OBGyn Episode No OBEpisode recorded.
--- OUTSIDE RECORDS SUMMARY | 2025-02-28 08:11 | XMS_ITS ---
Author Organization [facility] Care Team Providers Care Concrete Conveyor Operator Name Role Phone Liana Desir Unavailable Unavailable Harriet Navarrete Unavailable Unavailable Monster Whelan Unavailable Unavailable Terri Gamboa Unavailable Unavailable Taisha Daniel Unavailable Unavailable Allergies and adverse reactions No Known Allergies Care Team Name Role Address Phone Organization Dates Monster Whelan PCP [address] [facility] [address], [address], [facility] (Office): [facility] 10/31/2018 - 11/16/2018 Liana Desir [address] [place] [address], [address], [facility] (Office): [facility] 10/31/2018 - 11/16/2018 Harriet Navarrete [address], [address], [facility] (Office): [facility] 10/31/2018 - 11/16/2018 Terri Gamboa [address], [address], [facility] (Office): [facility] 10/31/2018 - 11/16/2018 Taisha Ramirez [address], [place], [address], [place] (Office): [facility] 10/31/2018 - 11/16/2018 Mental Status Section Date Assessment Total Score Description 11/16/2018 CAM 0 No delirium ind icated 11/07/2018 BIMS 15 cognitively int act CAM 0 No delirium ind icated PHQ-9 00 Insurance Providers Coverage Status Coverage Type Relationship to Subscriber Member Identifier Subscriber Identifier Group Identifier Payer Identifier and Other information 2018 Code: 51 Code System OID:[id number] .[id number]. 5 Code System Name: Source of Payment Typology (PHDSC) Display: Managed Care (Private) Translation: Code: HM Code System: OID:[id number] .[id number]. 1336 Code System Name: Insurance Type Code ([id number]) Display Name: Health Maintenance Organization (HMO) Plan Code: SELF Code System Name: HL7 RoleCode Code System OID:[id number] .[id number] Display Name: Self [id number] Root: [id number] Payer Identifier: Root: [id number] Extension: [id number] Payer Name: [facility] Address: [address] [place] [address] City: [place] State: [place] Country: [place] Telecom: [phone] Code: 81 Code System OID:[id number] .[id number]. 5 Code System Name: Source of Payment Typology (PHDSC) Display: Self Pay Translation: Code: 09 Code System: OID:[id number] .[id number]. 1336 Code System Name: Insurance Type Code ([id number]) Display Name: Self-pay Problems Problem # Description Date of onset Resolved Date Code CodeSystem Concern Status 1 ANXIETY DISORDER, UNSPECIFIED 10/31/[address] active 2 CHEST PAIN, UNSPECIFIED 10/31/[address] active 3 DIFFICULTY IN WALKING, NOT ELSEWHERE CLASSIFIED 10/31/[address] active 4 DIZZINESS AND GIDDINESS 10/31/[address] active 5 MUSCLE WEAKNESS (GENERALIZED) 10/31/[address] active 6 OTHER CHEST PAIN 10/31/[address] a ctive 7 OTHER LACK OF COORDINATION 10/31/[address] active 8 PAIN, UNSPECIFIED 10/31/[address] active Reason for Referral No Reasons for Referral Entered Social History Social History Observation Description Start Date End Date Code Code System Current Smoking Status Tobacco smoking consumption unknown 260924699 SNOMED CT Sex Assigned At Female 1955 11122-7 [facility] Gender Identity Sexual Orientation Vital Signs Code Code System Vitals Name Values and Units Timing Information 97342-2 [facility] O2 % BldC Oximetry Value=98.0 Units= % 11/16/2018 9279-1 LOINC Respiratory Rate Value=18.0 Units=/m in 11/16/2018 8462-4 LOINC Blood Pressure-Diastolic Value=74 Un its=mmHg 11/16/2018 8480-6 LOINC Blood Pressure-Systolic Ioxvn=074 Un its=mmHg 11/16/2018 8310-5 INC Body Temperature Value=98.0 Units= F 11/16/2018 8867-4 LOINC Heart rate Value=77.0 Units=/min 17620-4 INC Pain Level Value=0.0 11/16/2018 35885-7 LOINC Weight Uzybz=890.0 Units=Lbs 12/2018 8302-2 LOINC Height Value=61.0 Units=Inches 11/06/2018
--- OUTSIDE RECORDS SUMMARY | 2025-02-28 08:11 | XMS_ITS ---
Author Name [facility] Organization Unknown History of Medication Use Medication Directions Dispensed Refills Start Date End Date Stat amlodipine 5 mg tablet Take 1 tablet every day by oral route. 05/08/2024 active atorvastatin 10 mg tablet TAKE 1 TABLET(10 MG) BY MOUTH DAILY 05/08/2024 active alendronate 70 mg tablet Take 1 tablet (70 mg total) by mouth every 7 days. Take with water on empty stomach/Nothing by mouth and do not lie down for next 30 minutes 08/02/2023 08/14/2023 completed ibuprofen 800 mg tablet TAKE 1 TABLET BY MOUTH EVERY 8 HOURS NEEDED FOR PAIN 11/20/2024 completed amoxicillin 500 mg tablet TAKE 1 TABLET BY MOUTH EVERY 6 HOURS UNTIL GONE 11/19/2024 completed amoxicillin 875 mg-potassium clavulanate 125 mg tablet TAKE 1 TABLET BY MOUTH TWICE DAILY FOR 7 DAYS 05/08/2024 completed atorvastatin 10 mg tablet active amlodipine 5 mg tablet active aspirin-acetaminop hen-caffeine 250 mg-250 mg-65 mg tablet Take 2 tablets by mouth every 8 (eight) hours as needed. 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 ProblemAct [facility] Essential hypertension active 2024-05-07 ProblemAct [facility] Immunizations Vaccine Date Source Lot Number Status pneumococcal conjugate vaccine, 13 valent 10/19/2018 [facility] [id number] completed zoster vaccine, live 11/29/2015 [facility] UNK comp leted Encounters Encounter Type Encounter Reason Primary Diagnosis Location Date Ambulatory [facility] 11/04 [facility] 06/04 [facility] 07/2024 [facility] 07/2024 [facility]ulatory [facility] 07/2024 [facility]ulatory [facility] 07/2024 [facility]ulatory [facility] 06/2024 Care Team Organization Name Specialty Phone Email Start Date End Da te [facility] ELIZA MASCORRO Primary Care 11/20/2024 02/17/2025 [facility] 05/15/2024 02/17/2025
--- OUTSIDE RECORDS SUMMARY | 2025-02-28 08:11 | XMS_ITS | Encounter Summary ---
Author Organization [facility] Address [address] [place] [address] [place] [id number] Phone Care Team Providers Care Laundry Agent Name Role Phone Aldo Lopez MD Primary Care Provider [phone] Reason for Referral * Consultation (Elective) - Closed Specialty Diagnoses / Procedures Referred By Gerardo sin Referred To Contact Neurology Diagnoses Neuropathy Somatoform disorder System, Provider Not In, [facility] [id number] [place] [phone] Phone: tel: Referral ID Status Reason Start Date Expiration Date Visits Re quested Visits Authorized [id number] Closed 12/12/2018 12/13/2019 1 1 Encounter Details Date Type Department Care Team (Late st Contact Info) Description 12/12/2018 Transcribe Orders [facility] [address] [place] [address], 8[address] Floor, [address] [place] [address] System, Provider Not In, [place] [address] Neuropathy (Primary Dx); Somatoform disorder Social History Tobacco Use Types Packs/Day Years Used Date Smoking Tobacco: Never Assessed Comments Unknown Sex and Gender Information Value Date Recorded Sex Assigned at Female 03/02/2020 10:47 AM EST Legal Sex Female 2:43 PM EDT Gender Identity Female 03/02/2020 10:47 AM EST Sexual Orientation Straight 03/02/2020 10 :47 AM EST documented as of this encounter Plan of Treatment Scheduled Referrals Name Type Priority Associated Diagnoses Order Schedule Ambulatory referral to [facility] Neurology Outpatient Referral Routine Neuropathy Somatoform disorder Ordered: 12/12/2018 documented as of this encounter Visit Diagnoses Diagnosis Neuropathy- Primary Mononeuritis of unspecified site 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 It is not the complete legal health record.[facility]
--- OUTSIDE RECORDS SUMMARY | 2025-02-28 08:11 | XMS_ITS | Clinical Summary ---
Author Organization [facility] Prior to 08/03/24 Address [address] [place] [address] Care Team Providers Care Chief Revenue Officer Name Role Phone Blanka Haskins APRN Primary Care Provider [phone] Allergies No known active allergies Medications Medication Sig Dispensed Refills Start Date End Date Status Multiple Vitamin (MULTI-VITAMIN DAILY PO) Take by mouth. 0 Active FIBER PO Take by mouth. 0 Active CALCIUM PO Take 600 mg by mouth. W/ vitamin D 0 Active heoebiv-fzxqmirarsrcr-k affeine (EXCEDRIN MIGRAINE) 250-250-65 MG per tablet Take 2 tablets by mouth every 8 (eight) hours as needed. 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 Lumbar spine: Normal bone density (T score: -0.3). 2. Left hip: Osteoporosis (T score: -2.5). Vitamin D 36 ng/mL on 07/26/23 Calcium 9.9 mg/dL on 10/17/23 Alendronate therapy initiated last visit 08/02/2023; patient self discontinued (previously reported) due to concern of muscle pain which subsequently resolved with discontinuation; at that time discussed trial of alternative oral bisphosphonate or alternative osteoporosis treatment (e.g. injection or infusion) which patient declined. Today counseled patient on fall prevention measures and ongoing weight bearing exercise and calcium/vitmain D supplementation to promote bone health. Again reviewed possible alternative pharmacologic treatment options and increased risk for fracture and resultant morbidity/mortality in event of fracture; patient verbalized understanding and declined alternative pharmacologic treatment options. Reviewed previous recommendation with alternative supplement -Discussed with patient limited research to show supplementation with 5 g of specific collagen peptides (FORTIBONE ) may significantly increase BMD - recommended trial of supplement if unwilling to consider alternative osteoporosis medication. Patient and daughter thankful for information and agree to look into supplement. Resolved Problems Problem Noted Date Diagnosed Date Resolved Date Osteopenia 03/04/2016 02/02/2023 11/03/2023 Immunizations Name Administration Dates Next Due Pneumococcal Conjugate PCV13 10/19/2018 Zostavax (Zoster Live) 11/29/2015 Family History Medical History Relation Name Comments Heart attack Brother 1 Trip Cancer Brother 2 Lucas Heart attack Father Hypertension Father Stroke Father Uterine cancer Mother Breast cancer Paternal Aunt No Sig Med Hx Sister Jackelyn Ovarian cancer Neg Hx Relation Name Status Comments Brother 1 Trip Alive Brother 2 Lucas Alive Brother 3 Nabeel Alive Father Maternal Grandfather Maternal Grandmother Mother Paternal Aunt Paternal Grandfather Paternal Grandmother Sister Jackelyn Alive Social History Tobacco Use Types Packs/Day Years Used Date Smoking Tobacco: Former Cigarettes Smokeless Tobacco: Never Comments:Started at age 13 Q uit age 47 1 PPD Sex and Gender Information Value Date Recorded Sex Assigned at Not on file Gender Identity Not on file Sexual Orientation Not on file Job Start Date Occupation Industry Not on file Not on file Not on file Last Filed Vital Signs Vital Sign Reading Time Taken Comments Blood Pressure 128/70 11/01/2023 10:21 AM EDT Pulse 52 11/01/2023 10:21 AM EDT Temperature 36.7 C (98 F) 11/01/2023 10:21 AM EDT Respiratory Rate 18 08/02/2023 9:56 AM EDT Oxygen Saturation 99% 11/01/2023 10:21 AM EDT Inhaled Oxygen Concentration - - Weight 58.3 kg (128 lb 9.6 oz) 11/01/2023 10:21 AM EDT Height 156.2 cm (5' 1.5 ) 11/01/2023 10:21 AM ED T Body Mass Index 23.91 11/01/2023 10:21 AM EDT Plan of Treatment Health Maintenance Due Date Last Done Comments Depression Screening 08/01/2024 08/02/2023, 08/02/2023, 08/02/2023 Fall Risk Assessment 08/01/2024 08/02/2023, 08/02/2023, 08/02/2023 Preventative Health Evaluation 08/01/2024 08/02/2023, 08/02/2023 Influenza Vaccine (#1) 2024 Breast Cancer Screening (Mammogram) 07/05/2025 07/06/2023 Osteoporosis Screening (DEXA Scan) 07/05/2025 07/06/2023 Colon Cancer Screening (Colonoscopy) 09/14/2025 09/14/2020 Pneumococcal Vaccine Discontinued 10/19/2018 Hepatitis C Screening Completed 10/17/2023 COVID-19 Vaccine Discontinued DTap / Tdap / Td Discontinued Hepatitis B Vaccines Aged Out No long er eligible based on patient's age to complete this topic RSV Adult > 60+ Yrs or Discontinued RSV Ped < 20 months Aged Out No longe r eligible based on patient's age to complete this topic Shingrix-Zoster Vaccine Discontinued Care Teams Chief Revenue Officer Relationship Specialty Start Date End Date Blanka Haskins APRN PCP - General Nurse Practitioner 02/01/23
[2025-02-28 08:40] VITALS: BP 153/79; PULSE 72; TEMP 36.3; O2SAT 100; BMI 25.2
--- NOTE | 2025-02-28 08:40 | A.OFFPC_ITS ---
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 Accompanied by: Self / Same As Patient Allergies No Known Allergies Allergy (Verified 02/28/25 08:41) Tobacco use date assessed: 02/28/25 Fall risk assessment: No Falls in past year Last assessed Fall Risk: 02/28/25 Dental Screening Dental Screen Date: 02/28/25 Did you have a dental visit in the last 12 months?: Yes Did you have a dental problem in the last 6 months where you did not have access to dental care?: No Was dental information given to patient?: Patient has dentist HPI HPI Comments History of Present Illness Details History of Present Illness The patient is a 69 year old female presenting to [facility] primary care. 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 She was hospitalized and received IVIG for two days. During the initial phase, she was unable to walk, spent time in a mcfp, and used a wheelchair. A spinal tap revealed elevated protein. She previously saw a neurologist but stopped going because she was told there is nothing more that can be done for the condition. Hypertension: The patient takes amlodipine 5 mg for blood pressure. Her blood pressure was noted to be elevated during the visit, which she attributed to stress. Hyperlipidemia: The patient takes atorvastatin but was uncertain of the indication, though it is presumed to be for elevated cholesterol. Health Maintenance: The patient reports her last Pap smear was probably over a year ago. She undergoes mammograms every other year. She has had a bone scan and a colonoscopy in the past, but states it has been a while since the last ones. She takes calcium citrate as recommended by her previous provider. Constipation: The patient reports a history of constipation, which is no longer an issue. Medications: - Amlodipine 5 mg for blood pressure. - Atorvastatin for presumed hyperlipidem ia. - Calcium citrate for calcium supplement ation. Social History: - Insurance: The patient has B2Brev. - Financial: The patient expressed last rns about the financial cost of lab work and whether her insurance will cover it. Diagnostic Results: - Spinal Tap: A past spinal tap showed e levated protein. Past Medical History - Atypical Guillain-Odonnell syndrome, diag nosed approximately 6 years ago, treated with IVIG. - Hypertension - Presumed hyperlipidemia - History of constipation, now resolved. - Prior hospitalization for GBS symptoms . - History of spinal tap procedure. Health Maintenance - Address need for Pap smear, mammogram, bone density scan, and colonoscopy screenings. - Continue calcium citrate supplementati on pending lab results for calcium and vitamin D. [facility] Medical History (Updated 02/28/25 @ 12:34 by Gonzalez King MD) Constipation Tubular adenoma Colon polyps Hematochezia Pre-syncope Postural dizziness History of Guillain-Odonnell syndrome Family History (Updated 02/28/25 @ 08:56 by Shane Medina MA) Father Heart attack Dementia Mother Cancer Social History Housing: [facility] Patient Tobacco Use Status: Never used Tobacco service: No Current occupational status: retired Cognitive needs: Yes Hearing needs: No Vision needs: Yes (reading glasses, rx glasses) Questionnaire PHQ-9 Over the last 2 weeks, how often have you been bothered by any of the following problems? 1. Little interest or pleasure in doing things: not at all 2. Feeling down, depressed, or hopeless: not at all 3. Trouble falling or staying asleep, or sleeping too much: not at all 4. Feeling tired or having little energy: not at all 5. Poor appetite or overeating: several days 6. Feeling bad about yourself - or that you are a failure or have let yourself or your family down: not at all 7. Trouble concentrating on things, such as reading the newspaper or watching television: not at all 8. Moving or speaking so slowly that other people could have noticed. Or the opposite - being so fidgety or restless that you have been moving around a lot more than usual: not at all 9. Thoughts that you would be better off or of hurting yourself in some way: not at all Total score: 1 Depression Screening Interpretation: Negative Depression Screening Done: Yes Source: Developed by Drs. Bowen Zimmerman, Kathleen B.W. César Carlos and colleagues, with an educational sourav from [employer]. Thrive Questionnaire Date Thrive assessed: 02/28/25 I am a: Patient What is your living situation today?: I have a steady place to live Within the past 12 months, did the food you bought not last and you didn't have the money to get more?: Never true Within the past 12 months, did you worry whether your food would run out before you got money to buy more?: Never true Do you have trouble paying for medicines?: No Do you have trouble getting transportation to medical appointments?: No Do you have trouble paying your heating and electricity bill?: No Do you have trouble taking care of your child, family member or friend?: No Do you have trouble with day-to-day activities such as bathing, preparing meals, shopping, managing finances, etc.?: No Are you currently unemployed and looking for a job?: No Are you interested in more education?: No Please select the resources that you would like help with: None Currently or been in a relationship where the following occur: No concerns reported THRIVE Score: 0 AUDIT C Alcohol Use Questionnaire (AUDIT-C) 1. How often do you have a drink containing alcohol?: Never Total Score: 0 MARIZA-7 AMB Questionnaire MARIZA-7 Date MARIZA - 7 assessed: 02/28/25 Feeling nervous, anxious, or on edge: 1 = Several days Not being able to stop or control worryin = Several days Worrying too much about different things: 1 = Several days Trouble relaxin = Several days Being so restless that it is hard to sit still: 0 = Not at all Becoming easily annoyed or irritable: 1 = Several days Feeling afraid as if something awful might happen: 1 = Several days Total MARIZA-7 score (0-4 normal; 5-9 mild; 10-14 moderate; 15-21 severe): 6 Source: Developed by Drs. Bowen Zimmerman, César Colvin and colleagues, with an educational sourav from [employer]. Review of Systems Narrative Review of Systems - Constitutional: Denies fatigue. - Gastrointestinal: Denies constipation. - Neurological: Reports a history of being unable to walk. 10-point ROS reviewed and negative except as noted in HPI Physical exam (Primary Care) Vital Signs: Last Vital Signs Temp 97.4 F 02/28/25 08:40 Pulse 72 02/28/25 08:40 BP 153/79 H 02/28/25 08:40 Pulse Ox 100 02/28/25 08:40 Oxygen Delivery Method Room Air 02/28/25 08:40 BMI result Body Mass Index 25.2 Tobacco/Smoking Status: Tobacco use Status Tobacco use date assessed 02/28/25 02/28/25 08:54 Patient Tobacco Use Status Never used Tobacco 02/28/25 08:54 PHQ-9: PHQ-9 Score PHQ-9: Total score 1 02/28/25 08:54 Depression Screening Interpretation: Negative Thrive Assessment: Date of Thrive Assessment Date Thrive assessed 02/28/25 02/28/25 08:54 Currently or been in a relationship where the following occur: No concerns reported Narrative Physical Exam General: Well-appearing, in no acute distress. Vital signs: Within normal limits. HEENT: Normocephalic, atraumatic. PERRLA, EOMI. Conjunctiva clear, sclera anicteric. Oropharynx clear, mucous membranes moist. TMs intact bilaterally. Neck: Supple, no lymphadenopathy, no thyromegaly, no JVD or carotid bruits. Cardiovascular: RRR, normal S1/S2, no murmurs, rubs, or gallops. Peripheral pulses 2+ and symmetric. No edema. Respiratory: Lungs clear to auscultation bilaterally, no wheezes, rales, or rhonchi. Normal effort. Abdomen: Soft, non-tender, non-distended. Normoactive bowel sounds. No hepatosplenomegaly, no masses. MSK: Full range of motion, no joint swelling or deformity. ataxi gait. Skin: Warm, dry, intact. No rashes, lesions, or pallor. Neuro: Alert and oriented x3. Cranial nerves II-XII intact. Strength 5/5 throughout. Sensation intact. Reflexes 2+ in upper extremities no reflexes in lower extremity. ataxic gait Psych: Appropriate mood and affect. Normal judgment and insight. 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 Elevated blood pressure reading R03.0 Hyperlipidemia E78.5 Ataxic gait R26.0 Use of cane as ambulatory aid Z99.89 Assessment & Plan Assessment & Plan (1) Hypertension: Code(s): I10 - Essential (primary) hypertension Category: Medical (2) Sensory neuropathy: Code(s): G62.9 - Polyneuropathy, unspecified Category: Medical (3) Elevated blood pressure reading: Code(s): R03.0 - Elevated blood-pressure reading, without diagnosis of hypertension Category: Medical (4) Hyperlipidemia: Code(s): E78.5 - Hyperlipidemia, unspecified Category: Medical (5) Ataxic gait: Code(s): R26.0 - Ataxic gait Category: Medical (6) Use of cane as ambulatory aid: Code(s): Z99.89 - Dependence on other enabling machines and devices Category: Medical Plan Consent The patient expressed concern about the potential cost of comprehensive lab work and whether her insurance would cover it. The plan is for the patient to call her insurance company to verify coverage for the ordered labs before proceeding. The patient agreed to this plan. Patient was informed and verbally consented to the use of an ambient scribe for clinic note documentation during this visit. Plan 1. Establishment Of Primary Care - Comprehensive blood work ordered, including CBC, CMP, kidney function, liver function, TSH, vitamin B12, folate, vitamin D, A1c, and lipid panel. - The patient will verify insurance coverage before proceeding with lab tests. - A request for medical records from her previous primary care provider has been submitted. - Plan to follow up in two weeks. 2. Hypertension - Continue current medication, amlodipine 5 mg. - The elevated blood pressure reading during the visit was acknowledged as likely being related to stress. 3. Hyperlipidemia - Continue taking atorvastatin as prescribed. - A lipid panel is included in the ordered labs to assess cholesterol levels. 4. Atypical Guillain-Odonnell Syndrome - This is considered a chronic, stable issue with no current specialist follow- up, as the patient was informed that no further treatment is available. - No changes to management at this time. Discussion Notes I introduced myself and explained that as a family medicine physician, I provide comprehensive care, including preventative screenings for women's health, colon cancer, and bone health. To establish a baseline for her care, I recommended a comprehensive set of blood tests. The patient expressed worries about the cost and insurance coverage for these labs. I advised her to contact her insurance provider to confirm coverage before proceeding with the blood draw, and I provided the necessary information for her to do so. We discussed the importance of obtaining her medical records from previous providers to ensure a complete view of her health history. I informed her that her two main active issues appear to be her blood pressure and the history of Guillain-Odonnell syndrome. A follow-up visit in two weeks was proposed to review the lab results. Patient Instructions - Contact your insurance company to check if the ordered blood tests are covered before getting them done. - Once you have confirmed with your insurance, you can come to the clinic to have your blood drawn. - Continue taking your current medications as prescribed, including amlodipine, atorvastatin, and calcium. - We have requested your medical records, but please let us know if you find any information from your previous doctors. - Schedule a follow-up appointment in about two weeks. Medical Decision Making This is a 69-year-old female establishing care today. Her medical history is significant for hypertension and atypical Guillain-Odonnell syndrome, which is reportedly chronic and stable with no active specialist management. She takes amlodipine for blood pressure, atorvastatin for presumed hyperlipidemia, and calcium citrate, for which the indication needs clarification. Given that this is an initial encounter and prior records are not yet available, a comprehensive laboratory evaluation is warranted to establish a baseline and screen for common conditions. This includes a CBC, CMP, lipid panel, A1c, thyroid studies, and vitamin levels. The patient expressed financial concerns, so proceeding with the labs is contingent upon her verifying insurance coverage, which is a reasonable step to respect patient autonomy and financial circumstances. The patient is also due for several age-appropriate health screenings, including a Pap smear, and likely a colonoscopy and bone density scan, which will be addressed in future visits, preferably after her old medical records have been received. The plan is to follow up in two weeks to review any available data and further delineate her care plan. Total Time Statement 45 min Total time spent caring for the patient today includes pre-visit chart review, documentation, review of laboratory and diagnostic imaging results, medication reconciliation, medically necessary evaluation, counseling on diagnoses, care coordination, ordering appropriate tests and medications, review of tests performed by other providers, reporting test results to the patient, and communication with other healthcare providers. Orders: Orders Syphilis Screen Today Z13.9 - Encounter for screening, unspecified Comprehensive Met. Panel Today Z13.9 - Encounter for screening, unspecified Hepatitis C Antibody Today Z13.9 - Encounter for screening, unspecified UA CC w/rflx Micro + Cult Today Z13.9 - Encounter for screening, unspecified Lipid Panel Today Z13.9 - Encounter for screening, unspecified Hemoglobin A1c Today Z13.9 - Encounter for screening, unspecified Magnesium Today Z13.9 - Encounter for screening, unspecified Vitamin D 25-OH (D2 and D3) Today Z13.9 - Encounter for screening, unspecified Microalbumin, Random (w Creat) Today Z13.9 - Encounter for screening, unspecified Complete Blood Count Auto Diff Today Z13.9 - Encounter for screening, unspecified Hepatitis B Surface Antigen Today Z13.9 - Encounter for screening, unspecified TSH reflex Free T4 Today Z13.9 - Encounter for screening, unspecified HIV Ab/Ag Today Z13.9 - Encounter for screening, unspecified Vitamin B12 and Folate Today Z13.9 - Encounter for screening, unspecified Hepatitis B Surface Antibody Today Z13.9 - Encounter for screening, unspecified
== END 2025-02-28 09:37 | disposition home or self-care (01) ==
LOC: HO.HMCFMS 08:09
PROVIDERS: PCP Student in an Organized Health Care Education/Training Program; Visit Provider Student in an Organized Health Care Education/Training Program
DX: I10 Essential (primary) hypertension (principal); G62.9 Polyneuropathy, unspecified; R03.0 Elevated blood-pressure reading, without diagnosis of hypertension; E78.5 Hyperlipidemia, unspecified; R26.0 Ataxic gait; Z99.89 Dependence on other enabling machines and devices